=== PATIENT | female | born 1990 | race Caucasian/White ===

== ENCOUNTER 2016-10-01 05:27 | Inpatient (IN) | payer BC ==
--- NOTE | 2016-09-30 08:07 | PCM.LDHP ---
L&D History of Present Illness - General Date of Service: 09/30/16 Admit Problem/Dx: Admission Diagnosis/Problem Admission Diagnosis/Problem Source of Information: Patient History Limitations: Reports: No Limitations - History of Present Illness Introduction:: 0.7-year-old CYRUS 10/03/2016 estimated gestational age at time of C- section will be 39 weeks and 5 days GBS negative patient scheduled for repeat section 10/01/16 blood type O-positive antibody screen negative hemoglobin hematocrit 13.3/38.9 on 03/31/16 platelets 190,000 Pap smear negative rubella immune VDRL/RPR nonreactive urine culture contaminants hepatitis B surface antigen negative HIV negative Chlamydia probe negative gonorrhea probe negative on 08/20/2016 1 hour OB glucose screen 103 and hemoglobin hematocrit 10.5 and 33.0 platelets 230,000 Improves with: Reports: None Worsens with: Reports: None Associated Symptoms: Reports: N - Related Data Allergies/Adverse Reactions: Allergies Allergy/AdvReac Type Severity Reaction Status Date / Time No Known Allergies Allergy Verified 12/03/14 13:27 Home Medications: Home Meds Acetaminophen [Tylenol] 650 mg PO Q6H PRN #50 tablet 12/05/14 [Rx] Alum Hydrox/Mag Hydrox/Simeth [Mag-Al Plus] 30 ml PO Q8H PRN #1 cup 12/05/14 [Rx ] Benzocaine/Menthol [Dermoplast Pain Relief [place]] 1 spray TOP ASDIRECTED PRN #1 canister 12/05/14 [Rx] Bisacodyl [Dulcolax] 10 mg RECTAL BID PRN #20 supp 12/05/14 [Rx] Docusate Sodium [Colace] 100 mg PO BID PRN #50 cap 12/05/14 [Rx] Ibuprofen [Motrin] 200 - 800 mg PO Q6H PRN #50 tablet 12/05/14 [Rx] Lanolin [Lansinoh HPA] 1 applic TOP ASDIRECTED PRN #1 tube 12/05/14 [Rx] Past Medical History Other OB/BYN History: hx c-sections x 2 (2009 and 2012) and D&C - Past Surgical History Other HEENT Surgeries/Procedures: wisdom teeth Social & Family History - Tobacco Use Smoking Status *Q: Never Smoker - Recreational Drug Use Recreational Drug Use: No H&P Review of Systems - Review of Systems: Review Of Systems: See Below General: Reports: No Symptoms HEENT: Reports: No Symptoms Pulmonary: Reports: No Symptoms Cardiovascular: Reports: No Symptoms Gastrointestinal: Reports: No Symptoms Genitourinary: Reports: No Symptoms Musculoskeletal: Reports: No Symptoms Skin: Reports: No Symptoms Psychiatric: Reports: No Symptoms Neurological: Reports: No Symptoms Hematologic/Lymphatic: Reports: No Symptoms Immunologic: Reports: No Symptoms L&D Exam - Exam Exam: See Below - Vital Signs Weight: 156 lb 14.738 oz - OB Specific Fundal Height In cm: 37 Movement: Active Heart Tones: Present Heart Tones per Min: 145 Heart Rate (FHR) Variability: Moderate (6-25 bmp) Presentation: Vertex Estimated Weight: 7.5 - Exam General: Alert, Oriented HEENT: Conjunctiva Clear, Mucosa Moist & [place], Nares Patent, Normal Nasal Septum , Posterior Pharynx Clear, TMs Clear, PERRLA Neck: Supple, Trachea Midline Lungs: Clear to Auscultation, Normal Respiratory Effort Cardiovascular: Regular Rate, Regular Rhythm GI/Abdominal Exam: Normal Bowel Sounds, Soft, Non-Tender, No Organomegaly, No Distention, No Abnormal Bruit, No Mass, Pelvis Stable Genitourinary: Normal external exam, Normal bimanual exam, Normal speculum exam Back Exam: Normal Inspection, Full Range of Motion Extremities: Normal Inspection, Normal Range of Motion, Non-Tender, No Pedal Edema, Normal Capillary Refill Skin: Warm, Dry, Intact Neurological: Cranial Nerves Intact, Reflexes Equal Bilateral Psychiatric: Alert, Normal Affect, Normal Mood - Problem List (1) 39 weeks gestation of SNOMED Code(s): 69708829 ICD Code: Z3A.39 - 39 WEEKS GESTATION OF Status: Acute (2) Previous delivery affecting , antepartum SNOMED Code(s): 162143689, 259997367 ICD Code: O34.219 - MATERNAL CARE FOR UNSP TYPE SCAR FROM PREVIOUS DEL Status: Acute (3) Anemia affecting in third trimester SNOMED Code(s): 68513930, 00293044 ICD Code: O99.013 - ANEMIA COMPLICATING , THIRD TRIMESTER Status: Acute Problem List Initiated/Reviewed/Updated: No Assessment/Plan Comment:: plan repeat section Tuesday10/02/2015
[~2016-10-01 05:27] MED LIST: Citric Acid/Sodium Citrate Solution 30 ML Cup PO ONE; Metoclopramide 10 MG/2 ML SDV IVPUSH ONE; Sodium Chloride 0.9% 10 ML Syringe FLUSH PRN; ceFAZolin 2 GM in Premix Bag 1 BAG IV ONE
[2016-10-01] MEDS: Lactated Ringers 1,000 ML IV SCH ×2 (06:15→07:34)
[2016-10-01] MEDS ORDERED: Bupivacaine 0.5% 30 ML SDV ONE (06:44)
[2016-10-01] MEDS ORDERED: Oxytocin 10 Units/1 ML SDV ONE (07:05)
[2016-10-01] MEDS ORDERED: Morphine PF 10 MG/10 ML SDV ONE (07:05)
--- NOTE | 2016-10-01 07:14 | PCM.PREANE ---
Preanesthetic Assessment - Procedure Proposed Procedure: scheduled section - Anesthesia/Transfusion/Family Hx Anesthesia History: Prior Anesthesia Without Reaction Family History of Anesthesia Reaction: No Transfusion History: No Prior Transfusion(s) Intubation History: Unknown - Review of Systems General: No Symptoms Pulmonary: No Symptoms Cardiovascular: No Symptoms Gastrointestinal: No Symptoms Neurological: No Symptoms Other: Reports: None - Physical Assessment NPO Status Date: 09/30/16 NPO Status Time: 19:00 O2 Sat by Pulse Oximetry: 99 Respiratory Rate: 16 Vital Signs: Last Vital Signs Temp 37.1 C 10/01/16 05:45 Pulse 91 10/01/16 05:45 Resp 16 10/01/16 05:45 BP 108/75 10/01/16 05:45 Pulse Ox 99 10/01/16 05:45 Height: 1.57 m Weight: 76.912 kg ASA Class: 2 Mental Status: Alert & Oriented x3 Airway Class: Mallampati = 2 Dentition: Reports: Normal Dentition Thyro-Mental Finger Breadths: 3 Mouth Opening Finger Breadths: 5 ROM/Head Extension: Full Lungs: Clear to Auscultation, Normal Respiratory Effort Cardiovascular: Regular Rate, Regular Rhythm - Lab Values: Laboratory Last Values WBC 11.60 K/mm3 (3.98-10.04) H 10/01/16 06:25 RBC 3.75 M/mm3 (3.98-5.22) L 10/01/16 06:25 Hgb 10.4 gm/L (11.2-15.7) L 10/01/16 06:25 Hct 32.3 % (34.1-44.9) L 10/01/16 06:25 MCV 86.1 fl (79.4-94.8) 10/01/16 06:25 MCH 27.7 pg (25.6-32.2) 10/01/16 06:25 MCHC 32.2 g/dl (32.2-35.5) 10/01/16 06:25 RDW Std Deviation 48.2 fL (36.4-46.3) H 10/01/16 06:25 Plt Count 239 K/mm3 (182-369) 10/01/16 06:25 MPV 10.6 fl (9.4-12.3) 10/01/16 06:25 Neut % (Auto) 60.5 % (34.0-71.1) 10/01/16 06:25 Lymph % (Auto) 26.9 % (19.3-51.7) 10/01/16 06:25 [place] % (Auto) 10.9 % (4.7-12.5) 10/01/16 06:25 Eos % (Auto) 0.9 (0.7-5.8) 10/01/16 06:25 Baso % (Auto) 0.3 % (0.1-1.2) 10/01/16 06:25 Neut # (Auto) 7.01 K/mm3 (1.56-6.13) H 10/01/16 06:25 Lymph # (Auto) 3.12 K/mm3 (1.18-3.74) 10/01/16 06:25 [place] # (Auto) 1.27 K/mm3 (0.24-0.36) H 10/01/16 06:25 Eos # (Auto) 0.10 K/mm3 (0.04-0.36) 10/01/16 06:25 Baso # (Auto) 0.04 K/mm3 (0.01-0.08) 10/01/16 06:25 - Allergies Allergies/Adverse Reactions: Allergies Allergy/AdvReac Type Severity Reaction Status Date / Time No Known Allergies Allergy Verified 12/03/14 13:27 - Blood Blood Available: Yes Product(s) Available: PRBC - Anesthesia Plan Pre-Op Medication Ordered: Antacids - Acknowledgements Anesthesia Type Planned: Spinal Pt an Appropriate Candidate for the Planned Anesthesia: Yes Alternatives and Risks of Anesthesia Discussed w Pt/Guardian: Yes Pt/Guardian Understands and Agrees with Anesthesia Plan: Yes 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: , Other (See Below) Other OB/BYN History: hx c-sections x 2 (2009 and 2012) and D&C - Past Surgical History HEENT Surgical History: Reports: Oral Surgery Other HEENT Surgeries/Procedures: wisdom teeth - SUBSTANCE USE Smoking Status *Q: Never Smoker Tobacco Use Within Last Twelve Months: No Second Hand Smoke Exposure: No Recreational Drug Use History: No - HOME MEDS Home Medications: Home Meds Docusate Sodium [Colace] 100 mg PO DAILY 10/01/16 [History] Ferrous Sulfate [Iron] 1 tab PO DAILY 10/01/16 [History] Vit #108/Iron/FA [ One Tablet] 1 tab PO DAILY 10/01/16 [History ] - CURRENT (IN HOUSE) MEDS Current Meds: Current Medications Lactated Ringer's (Ringers, Lactated) 1,000 mls @ 125 mls/hr IV ASDIRECTED [facility] Last Admin: 10/01/16 06:15 Dose: 125 mls/hr Oxytocin 20 unit/ Lactated (Ringer's) 1,002 mls @ 500 mls/hr IV ASDIRECTED [facility] Sodium Chloride (Saline Flush) 10 ml FLUSH ASDIRECTED PRN PRN Reason: Keep Vein Open Discontinued Medications Bupivacaine HCl (Marcaine 0.5%) Confirm Administered Dose 30 ml .ROUTE .STK-MED ONE Stop: 10/01/16 06:45 Citric Acid/Sodium Citrate (Bicitra Solution) 30 ml PO ONETIME ONE Stop: 10/01/16 05:15 Last Admin: 10/01/16 06:51 Dose: 30 ml Cefazolin Sodium/Dextrose 2 gm (/ Premix) 50 mls @ 100 mls/hr IV ONETIME ONE Stop: 10/01/16 05:43 Metoclopramide HCl (Reglan) 10 mg IVPUSH ONETIME ONE Stop: 10/01/16 05:15 Last Admin: 10/01/16 06:51 Dose: 10 mg Morphine Sulfate (Duramorph Pf) Confirm Administered Dose 10 mg .ROUTE .STK-MED ONE Stop: 10/01/16 07:06 Oxytocin (Pitocin) Confirm Administered Dose 20 unit .ROUTE .STK-MED ONE Stop: 10/01/16 07:06
[2016-10-01] MEDS ORDERED: ceFAZolin 1 GM Vial ONE (08:03)
[2016-10-01] MEDS ORDERED: Ondansetron 4 MG/2 ML SDV ONE (08:06)
[2016-10-01] MEDS ORDERED: Lactated Ringers 1,000 ML ONE ×2 (08:21)
[2016-10-01] MEDS ORDERED: Ketorolac 30 MG/ML SDV ONE (08:21)
--- NOTE | 2016-10-01 09:02 | PCM.POSTAN ---
POST ANESTHESIA ASSESSMENT - MENTAL STATUS Mental Status: Alert - VITAL SIGNS Pulse Rate: 78 SaO2: 98 Resp Rate: 8 Blood Pressure: 105/62 Temperature: 98.4 C - RESPIRATORY Respiratory Status: respiratory rate WNL, Airway Patent, O2 Saturation Stable - CARDIOVASCULAR CV Status: Pulse Rate WNL, Blood Pressure Stable - GASTROINTESTINAL GI Status: No Symptoms - POST OP HYDRATION Hydration Status: Adequate & Stable
[2016-10-01] MEDS ORDERED: Ondansetron 4 MG/2 ML SDV IVPUSH PRN (09:03)
[2016-10-01] MEDS ORDERED: diphenhydrAMINE 50 MG/ML SDV IVPUSH PRN ×2 (09:03→10:42)
--- NOTE | 2016-10-01 09:06 | PCM.OPNOTE ---
- General Post-Op/Procedure Note Date of Surgery/Procedure: 10/01/16 Operative Procedure(s): Low segment transverse C-sectionrepeat (third) Pre Op Diagnosis: Previous section 2, 39 weeks estimated gestational age, anemia in Post-Op Diagnosis: Same Anesthesia Technique: Spinal Primary Surgeon: Gilbert Tiwari Secondary Surgeon: Emir iVllanueva Anesthesia Provider: Sofiya Charles Color Tester: Izabela Fernandes (MS3) Fluid Replacement, Intraop: 1,200 Output, Urine Amount: 100 EBL in mLs: 700 Drain/Tube Comments:: Alexander to gravity drainage close system Complications: None Condition: Good Free Text/Narrative:: Patient was transported to the operating room #1 and placed under spinal anesthesia in the supine position with wedge under the right hip and right flank Alexander catheter to gravity drainage, vaginal and abdominal prep. SCDs in place and functioning prior surgery, Ancef 2 g given intravenously prior surgery. Timeout performed confirming patient's name date of and procedure as repeat section. Having draped the patient in a sterile fashion the adequate level of anesthesia was confirmed was brought to the operating room 20 mL of 0.5% Marcaine without epinephrine injection into the area of the planned incision which had been marked with a skin pen. Pfannenstiel incision was made and care was sharp section to into the anterior fascia peritoneal cavity was entered without difficulty bladder flap created pushed caudad low segment transverse section was performed delivering a female liveborn 0801 hrs. on Tuesday10/01/16 Apgars 9/9 weight [address] Guzman medical office supervisor in attendance. Cord blood was collected from three- vessel cord placenta was removed manually and the endometrial cavity inspected placenta inspected intact eccentric cord insertion 3 vessel cord. Sponge needle pack asthma sharp count correct 1 the uterine incision closed in 2 layers first layer running locking suture of 0 Monocryl second layer horizontal imbricating modified [place] and 2 additional [id number] sutures for hemostasis with 0 Monocryl. Both tubes and ovaries were normal clot screen from the gutters and cul-de-sac uterus replaced into the abdominal cavity uterine incision reinspected no bleeding sponge needle pack asthma sharp count correct 2 the abdominal cavity was closed with #1 PDS for the anterior fascia irrigation carried out in the subcutaneous tissue and the skin was closed with subcuticular 3-0 Monocryl Dermabond Preneo applied clots cleaned from the vagina and patient transported postanesthesia care unit in satisfactory condition no blood transfusions were required not anticipated Nusser condition should change.
[2016-10-01] MEDS ORDERED: Sodium Chloride 0.9% 10 ML Syringe FLUSH PRN (10:42)
[2016-10-01] MEDS ORDERED: ePHEDrine 50 MG/ML SDV IVPUSH PRN (10:42)
[2016-10-01] MEDS ORDERED: Acetaminophen/oxyCODONE 325-5 MG Tab PO PRN (10:42)
[2016-10-01] MEDS ORDERED: Lanolin 100% Cream 7 GM Tube TOP PRN (10:42)
[2016-10-01] MEDS ORDERED: Ondansetron 4 MG/2 ML SDV IV PRN (10:42)
[2016-10-01] MEDS ORDERED: Docusate Sodium 100 MG Cap PO PRN (10:42)
[2016-10-01] MEDS ORDERED: Acetaminophen 325 MG Tab PO PRN (10:42)
[2016-10-01] MEDS ORDERED: Naloxone 0.4 MG/ML SDV IVPUSH PRN (10:42)
[2016-10-01] MEDS ORDERED: Dextrose 5%-Lactated Ringers 1,000 ML IV SCH (10:42)
[2016-10-01] MEDS: Ketorolac 30 MG/ML SDV IVPUSH SCH ×2 (15:59→22:23)
[2016-10-01] MEDS: Dextrose 5%-0.45% NaCl 1,000 ML IV SCH (16:52)
[2016-10-01] MEDS ORDERED: Sodium Chloride 0.9% 1,000 ML IV ONE (21:18)
[2016-10-02] MEDS: Dextrose 5%-0.45% NaCl 1,000 ML IV SCH (00:23)
[2016-10-02] MEDS ORDERED: Ketorolac 30 MG/ML SDV ONE (04:34)
[2016-10-02] MEDS: Ketorolac 30 MG/ML SDV IVPUSH SCH (04:45)
--- NOTE | 2016-10-02 06:06 | PCM.SN ---
- Free Text/Narrative Note: Postoperative day one. Patient is doing well. Has minimal discomfort. Also minimal lochia. She is nursing. Output has improved significantly overnight with IV fluid bolus. Patient is afebrile, vital signs stable. Lungs are clear with good breath sounds in all lung powers. Cardiovascular exam shows regular rate and rhythm. Abdomen is soft, tender with palpation around the incision. Incision is dry, intact and without evidence of hematoma or seroma or infection. Legs are nontender. Assessment/plan: Postoperative day one. Doing well. Will increase diet, activity and discontinue IV when tolerating fluids well. Monitor intake and output.
[2016-10-02 08:15] VITALS: BP 87/51
[2016-10-02] MEDS ORDERED: Ibuprofen 600 MG Tab PO PRN (08:30)
--- NOTE | 2016-10-02 09:57 | PCM.DCSUM1 ---
Discharge Summary - Hospital Course Free Text/Narrative:: Jeniffer is a 26-year-old multigravida white female who underwent a repeat section yesterday a.m. She delivered a viable, 7 lbs. 1 oz. female at 0801 hrs. on 10/01/2016. scores were 9 and 9. Postoperatively pain was controlled with Toradol and with Duramorph through the spinal block. She has been doing very well. She is nursing without problems, ambulating well. She has had good urine output. She has minimal lochia. Pain is under good control. Patient is desiring discharge home. Her vital signs stable. She is afebrile. Incision looks good. She has not been taking anything for analgesia. - Discharge Data Discharge Date: 10/02/16 Discharge Disposition: DC/Tfer to [facility] Condition: Good - Patient Summary/Data Operative Procedure(s) Performed: Low segment transverse C-sectionrepeat (third ) - Patient Instructions Diet: Regular Diet as Tolerated (Nursing diet was increased calcium and calories as recommended) Activity: As Tolerated (No intercourse or tampons until seen back. No lifting greater than 15 pounds or tub baths or driving a car times the next week) Driving: Do Not Drive Showering/Bathing: May Shower Wound/Incision Care: Keep Operative Site/Wound Site Clean and Dry Notify Provider of: Fever, Increased Pain, Swelling and Redness, Drainage, Nausea and/or Vomiting - Discharge Plan Home Medications: Home Meds Docusate Sodium [Colace] 100 mg PO DAILY 10/01/16 [History] Ferrous Sulfate [Iron] 1 tab PO DAILY 10/01/16 [History] Vit #108/Iron/FA [ One Tablet] 1 tab PO DAILY 10/01/16 [History ] Acetaminophen/oxyCODONE [Percocet 325-5 MG] 2 tab PO Q4H PRN #20 tablet [Rx] Ibuprofen [IJD: Ibuprofen] 600 mg PO Q4H PRN #30 tablet 10/02/16 [Rx] Patient Handouts: Delivery, Care After, Home Care Instructions for Mom Referrals: Gilbert Tiwari MD [Physician] - (Return to clinicDrPatty Tiwari4 weeks.) - Discharge Summary/Plan Comment DC Time >30 min.: No Discharge Summary/Plan Comment: Discharge instructions: 1. Discharge home 2. Regular, high fiber, nursing diet was increased calcium and calories as directed. 3. Diet, activity and follow-up discussed in detail with patient. 4. Medications per home medication was printed, discussed with and given to the patient. 5. Precautions given concern increased pain, bleeding, temperature, signs/ symptoms of DVT/PE. 6. Return to clinic-Dr. Tiwari Diagnosis: 39 week -history of previous section-delivered by repeat section Condition: Good - Patient Data Vitals - Most Recent: Last Vital Signs Temp 37.0 C 10/02/16 04:00 Pulse 79 10/02/16 04:00 Resp 16 10/02/16 08:00 BP 88/62 L 10/02/16 04:00 Pulse Ox 98 10/02/16 06:00 Weight - Most Recent: 76.912 kg I&O - Last 24 hours: Intake & Output 10/01/16 10/02/16 10/02/16 22:59 06:59 14:59 Intake Total 2000 2800 Output Total 300 1275 Balance 1700 1525 Lab Results - Last 24 hrs: Laboratory Results - last 24 hr 10/02/16 Range/Units 06:16 WBC 13.91 H (3.98-10.04) K/mm3 RBC 2.92 L (3.98-5.22) M/mm3 Hgb 8.0 L (11.2-15.7) gm/L Hct 25.7 L (34.1-44.9) % MCV 88.0 (79.4-94.8) fl MCH 27.4 (25.6-32.2) pg MCHC 31.1 L (32.2-35.5) g/dl RDW Std Deviation 49.3 H (36.4-46.3) fL Plt Count 185 (182-369) K/mm3 MPV 10.6 (9.4-12.3) fl Neut % (Auto) 59.5 (34.0-71.1) % Lymph % (Auto) 28.7 (19.3-51.7) % [place] % (Auto) 9.5 (4.7-12.5) % Eos % (Auto) 1.6 (0.7-5.8) Baso % (Auto) 0.3 (0.1-1.2) % Neut # (Auto) 8.29 H (1.56-6.13) K/mm3 Lymph # (Auto) 3.99 H (1.18-3.74) K/mm3 [place] # (Auto) 1.32 H (0.24-0.36) K/mm3 Eos # (Auto) 0.22 (0.04-0.36) K/mm3 Baso # (Auto) 0.04 (0.01-0.08) K/mm3 Med Orders - Current: Current Medications Acetaminophen (Tylenol) 650 mg PO Q4H PRN PRN Reason: mild pain or fever Diphenhydramine HCl (Benadryl) 25 mg IVPUSH Q6H PRN PRN Reason: Itching or Nausea Docusate Sodium (Colace) 100 mg PO Q12H PRN PRN Reason: Constipation Emollient Ointment (Lansinoh Hpa) 0 gm TOP ASDIRECTED PRN PRN Reason: Sore Nipples Ephedrine Sulfate (Ephedrine Sulfate) 5 mg IVPUSH SEECOMMENT PRN PRN Reason: Other Dextrose/Sodium Chloride (Dextrose 5%-1/2 Ns) 1,000 mls @ 125 mls/hr IV ASDIRECTED [facility] Last Admin: 10/02/16 00:23 Dose: 125 mls/hr Ibuprofen (Motrin) 600 mg PO Q6H PRN PRN Reason: mild pain or fever Naloxone HCl (Narcan) 0.1 mg IVPUSH SEECOMMENT PRN PRN Reason: Respiratory Depression Ondansetron HCl (Zofran) 4 mg IV Q8H PRN PRN Reason: Nausea/Vomiting Last Admin: 10/01/16 16:50 Dose: 4 mg Oxycodone/Acetaminophen (Percocet 325-5 Mg) 2 tab PO Q4H PRN PRN Reason: Pain (moderate 4-6) Sodium Chloride (Saline Flush) 10 ml FLUSH ASDIRECTED PRN PRN Reason: Keep Vein Open Discontinued Medications Bupivacaine HCl (Marcaine 0.5%) Confirm Administered Dose 30 ml .ROUTE .STK-MED ONE Stop: 10/01/16 06:45 Last Admin: 10/01/16 07:58 Dose: 20 ml Cefazolin Sodium (Ancef) Confirm Administered Dose 2 gm .ROUTE .STK-MED ONE Stop: 10/01/16 08:04 Citric Acid/Sodium Citrate (Bicitra Solution) 30 ml PO ONETIME ONE Stop: 10/01/16 05:15 Last Admin: 10/01/16 06:51 Dose: 30 ml Diphenhydramine HCl (Benadryl) 25 mg IVPUSH Q6H PRN PRN Reason: pruritis Lactated Ringer's (Ringers, Lactated) 1,000 mls @ 125 mls/hr IV ASDIRECTED [facility] Last Admin: 10/01/16 07:34 Dose: 125 mls/hr Cefazolin Sodium/Dextrose 2 gm (/ Premix) 50 mls @ 100 mls/hr IV ONETIME ONE Stop: 10/01/16 05:43 Oxytocin 20 unit/ Lactated (Ringer's) 1,002 mls @ 500 mls/hr IV ASDIRECTED [facility] Lactated Ringer's (Ringers, Lactated) Confirm Administered Dose 1,000 mls @ as directed .ROUTE .ST-MED ONE Stop: 10/01/16 08:22 Lactated Ringer's (Ringers, Lactated) Confirm Administered Dose 1,000 mls @ as directed .ROUTE .STK-MED ONE Stop: 10/01/16 08:22 Dextrose/Lactated Ringer's (Dextrose 5%-Lactated Ringers) 1,000 mls @ 125 mls/ hr IV ASDIRECTED [facility] Stop: 10/01/16 18:41 Last Admin: 10/01/16 12:59 Dose: 125 mls/hr Sodium Chloride (Normal Saline) 1,000 mls @ 999 mls/hr IV ONETIME ONE Stop: 10/01/16 22:18 Last Admin: 10/01/16 21:36 Dose: 999 mls/hr Ketorolac Tromethamine (Toradol) Confirm Administered Dose 30 mg .ROUTE .STK- MED ONE Stop: 10/01/16 08:22 Ketorolac Tromethamine (Toradol) 30 mg IVPUSH Q6H [facility] Stop: 10/02/16 02:31 Last Admin: 10/02/16 04:45 Dose: 30 mg Ketorolac Tromethamine (Toradol) Confirm Administered Dose 30 mg .ROUTE .STK- MED ONE Stop: 10/02/16 04:35 Last Admin: 10/02/16 04:45 Dose: Not Given Metoclopramide HCl (Reglan) 10 mg IVPUSH ONETIME ONE Stop: 10/01/16 05:15 Last Admin: 10/01/16 06:51 Dose: 10 mg Morphine Sulfate (Duramorph Pf) Confirm Administered Dose 10 mg .ROUTE .STK-MED ONE Stop: 10/01/16 07:06 Ondansetron HCl (Zofran) Confirm Administered Dose 4 mg .ROUTE .STK-MED ONE Stop: 10/01/16 08:07 Ondansetron HCl (Zofran) 4 mg IVPUSH ONETIME PRN PRN Reason: Nausea/Vomiting Oxytocin (Pitocin) Confirm Administered Dose 20 unit .ROUTE .STK-MED ONE Stop: 10/01/16 07:06 Sodium Chloride (Saline Flush) 10 ml FLUSH ASDIRECTED PRN PRN Reason: Keep Vein Open *Q Meaningful Use (DIS) - VTE *Q VTE Criteria *Q: - Stroke *Q Stroke Criteria *Q: - AMI *Q AMI Criteria *Q:
== END 2016-10-02 12:53 | disposition home or self-care (01) | DRG 540 ==
LOC: JD.OB 05:27
PROVIDERS: ADMIT Obstetrics & Gynecology; ATTEND Obstetrics & Gynecology
PROC: 10D00Z1 Extraction of Products of Conception, Low, Open Approach (ICD-10-PCS; principal; 2016-10-01)
DX: O34.211 Maternal care for low transverse scar from previous cesarean delivery (principal); O99.02 Anemia complicating childbirth; Z3A.39 39 weeks gestation of pregnancy; Z37.0 Single live birth
CPT/HCPCS: 01961; 36415; 85025; 86850; 86900; 86901; 94762; A9270-GY; J0690; J1885; J2270; J2405; J2590; J2765; J7040; J7042; J7120

== ENCOUNTER 2019-05-16 05:20 | Inpatient (IN) | payer BC, OTHER ==
--- NOTE | 2019-05-15 21:09 | PCM.LDHP ---
L&D History of Present Illness - General Date of Service: 05/15/19 Admit Problem/Dx: Admission Diagnosis/Problem Admission Diagnosis/Problem 05/15/19 20:54 Jeniffer is a 29-year-old 6 para 4014 white female who is scheduled to be admitted on 05/16/2023 elective repeat section. Procedure, risks, benefits, alternatives of care including attempted are discussed due to patient. She appears understand and wishes to proceed. Source of Information: Patient History Limitations: Reports: No Limitations - History of Present Illness Introduction:: Jeniffer is a 29-year-old 6 para 4014 white female who is scheduled to be admitted on 05/16/2023 elective repeat section. Procedure, risks, benefits, alternatives of care including attempted are discussed due to patient. She appears understand and wishes to proceed. She has had a relatively unremarkable . 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 Patient has had 4 deliveries with 3 of them being sections. One done after her first 2 C-sections. First done for failure to progress. Patient had menarche at age 10. Cycles every month. Last menstrual period -08/16/2018. The CYRUS of 05/23/2019 is determined by certain last menstrual period 08/16/2018 and supported by 3 ultrasounds done on 11/27/2018, 01/05/2019 and 02/07/2019. Previous pregnancies have included the followin. Female infant born 07/19/2010 at 40 weeks gestational age after 15 hours later. 8 lbs. 2 oz. infant born by section done for failure to progress. 2. Miscarriage 11/06/2011 3. Female born 09[birth year]18/2012 at 36 weeks gestational age. 6 lbs. 4 oz. infant born by repeat section. 4. born 12/04/2000 1539 weeks gestational age6 lbs. 11 oz.vaginal after section. Child's name is Ava Sheridan 5. Female born [birth year]2014 at 39 weeks gestational age after 10 hours of labor 6 lbs. 7 lbs. 4 oz. Repeat section course was unremarkable. Her group B strep screen is negative. She declined Tdap. Plans to breast-feed. Patient was seen for her first visit on 11/27/2018 at 14-5/7 weeks gestational age. Her weight gain was from a pregravid weight of 144-173 pounds for 29 pound increase. Her vital signs remained stable throughout the course and fundal height growth was appropriate. The patient is rubella immune. She had her hepatitis B vaccinations in June 2007. Meningococcal immunization was done 05/17/2007. HPV immunization started August 09, 2007. Laboratory testing in shows blood to be O+ with a negative MRI screen. Hemoglobin is 12.1 g/dL and platelets 173,001st visit on 2018. She is rubella immune. RPR is nonreactive. Urine culture negative. [employer] B surface antigen and HIV S both negative. Cleaning gonorrhea tests both negative. Patient declined second trimester testing. She is group B strep negative. Allergies: None Medications: 1. vitamins 1 daily 2. Ferrous sulfate 325 mg by mouth daily Past medical history: 1. Miscarriage 1 11/06/2011 2. Vaginal delivery 12/03/2014VBAC Past surgical history: 1. D&C 2011miscarria 2. [place] tooth extraction 2006 3. 3 Family history: Mother is alive and well. Father is unknown. Brother is alive and well as is his sister. Maternal grandmother is alive but is a borderline diabetic. Family history is not known for maternal grandfather, paternal grandmother and paternal grandfather. There is no known family history of cancer , bleeding or clotting abnormalities, anesthesia related issues or related problems. Social history: Patient is . is Richard Vee. She works at [employer]. She does not use any significant amounts of alcohol, drugs or tobacco. She lives in [place] with her family. Review of systems: In general patient has no complaints. Baby has been active. Skin: Negative Lungs: No infectious symptoms or shortness of breath Cardiovascular: No chest pain or exercise intolerance Breasts: Increase in size and tenderness related to .. GI: Negative : Increased fundal height secondary to .. Musculoskeletal: Negative Neurological: Negative In general the patient is well-developed, well-nourished, pleasant female of stated age in no acute distress. Last evaluation in clinic on 05/14/2019 blood pressure is 122/68. Weight was 173 with a pregravid weight of 144.2. Height is 5 feet 2 inches. Prepregnancy BMI is 26.3. FHR was 147 BPM. Skin is warm dry without lesions. HEENT, neck and back within normal limits. Lungs are clear with good breath sounds in all lung powers. Cardiovascular exam shows regular and rhythm without murmurs. Breasts exam is deferred having that done first no visible found to be normal. Abdomen is gravid with last fundal height at 37 cm. Baby in vertex presentation Genital per digital exam done 05/14/2019 shows cervix to be 2 cm, 80% effaced, soft, -3, mid position. Extremities and neurological exam are grossly within normal limits. 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 2014 Hematologic History: Reports: Anemia, Iron Deficiency, Other (See Below) Other Hematologic History: Anemia in nayely high. Currently taking iron daily - Past Surgical History HEENT Surgical History: Reports: Oral Surgery Other HEENT Surgeries/Procedures: wisdom teeth 2006 Social & Family History - Family History Family Medical History: Noncontributory - Tobacco Use Smoking Status *Q: Never Smoker - Recreational Drug Use Recreational Drug Use: No H&P Review of Systems - Review of Systems: Review Of Systems: See Below L&D Exam - Exam Exam: See Below - Patient Data Lab Results Last 24 hrs: Laboratory Results - last 24 hr 05/14/19 Range/Units 16:37 RPR Non-reactive (NONREACTIVE) Result Diagrams: 05/14/19 16:37 Problem List Initiated/Reviewed/Updated: Yes Assessment/Plan Comment:: 1. Jeniffer is a patient with a 39 0/7 week intrauterine with an CYRUS of 05/23/2019 admitted for elective repeat section. The procedure, risks , benefits, alternatives of care and follow-up discussed in detail patient. She appears to understand and wishes to proceed. 2. B strep screen negative 3. History of 3 previous C-sections and desire for repeat section. 4. Patient plans to breast-feed 5. Patient is rubella immune 6. Patient declined her T-dap Plan: 1. Repeat lower uterine segment transverse under spinal block. Discussed in detail with patient. Consent is signed. 2. Support breast-feeding decision 3. CBC, urinalysis, type and screen 4. Antibiotic prophylaxis with Ancef 2 g IV preop 5. SCDs for DVT prophylaxis.
[~2019-05-16 05:20] MED LIST changes: -Citric Acid/Sodium Citrate Solution 30 ML Cup PO ONE; -Metoclopramide 10 MG/2 ML SDV IVPUSH ONE; +Oxytocin/Lactated Ringers 20 UNIT/1,000 ML BAG IV SCH; -ceFAZolin 2 GM in Premix Bag 1 BAG IV ONE
[2019-05-16] MEDS ORDERED: Citric Acid/Sodium Citrate Solution 30 ML Cup PO ONE (06:00)
[2019-05-16] MEDS: Lactated Ringers 1,000 ML IV SCH ×2 (06:00→06:27)
[2019-05-16] MEDS ORDERED: Metoclopramide 10 MG/2 ML SDV IVPUSH ONE (06:00)
--- NOTE | 2019-05-16 06:49 | PCM.PREANE ---
Preanesthetic Assessment - Anesthesia/Transfusion/Family Hx Anesthesia History: Prior Anesthesia Without Reaction Transfusion History: No Prior Transfusion(s) Intubation History: Unknown - Review of Systems General: No Symptoms Pulmonary: No Symptoms Cardiovascular: No Symptoms Gastrointestinal: No Symptoms Neurological: No Symptoms Other: Reports: None - Physical Assessment NPO Status Date: 05/16/19 NPO Status Time: 04:00 (CLQ) Height: 1.57 m Weight: 77.746 kg ASA Class: 2 Mental Status: Alert & Oriented x3 Airway Class: Mallampati = 1 Dentition: Reports: Normal Dentition Thyro-Mental Finger Breadths: 3 Mouth Opening Finger Breadths: 4 ROM/Head Extension: Full Lungs: Clear to Auscultation, Normal Respiratory Effort Cardiovascular: Regular Rate, Regular Rhythm - Lab Values: Laboratory Last Values WBC 12.04 K/mm3 (3.98-10.04) H 05/14/19 16:37 RBC 3.69 M/mm3 (3.98-5.22) L 05/14/19 16:37 Hgb 10.2 gm/dl (11.2-15.7) L D 05/14/19 16:37 Hct 32.7 % (34.1-44.9) L 05/14/19 16:37 MCV 88.6 fl (79.4-94.8) 05/14/19 16:37 MCH 27.6 pg (25.6-32.2) 05/14/19 16:37 MCHC 31.2 g/dl (32.2-35.5) L 05/14/19 16:37 RDW Std Deviation 42.7 fL (36.4-46.3) 05/14/19 16:37 Plt Count 307 K/mm3 (182-369) D 05/14/19 16:37 MPV 10.6 fl (9.4-12.3) 05/14/19 16:37 Neut % (Auto) 63.3 % (34.0-71.1) 05/14/19 16:37 Lymph % (Auto) 24.7 % (19.3-51.7) 05/14/19 16:37 [place] % (Auto) 10.5 % (4.7-12.5) 05/14/19 16:37 Eos % (Auto) 0.7 (0.7-5.8) 05/14/19 16:37 Baso % (Auto) 0.2 % (0.1-1.2) 05/14/19 16:37 Neut # (Auto) 7.61 K/mm3 (1.56-6.13) H 05/14/19 16:37 Lymph # (Auto) 2.97 K/mm3 (1.18-3.74) 05/14/19 16:37 [place] # (Auto) 1.27 K/mm3 (0.24-0.36) H 05/14/19 16:37 Eos # (Auto) 0.09 K/mm3 (0.04-0.36) 05/14/19 16:37 Baso # (Auto) 0.03 K/mm3 (0.01-0.08) 05/14/19 16:37 RPR Non-reactive (NONREACTIVE) 05/14/19 16:37 Blood Type O POSITIVE 05/14/19 16:45 Gel Antibody Screen Negative 05/14/19 16:45 - Allergies Allergies/Adverse Reactions: Allergies Allergy/AdvReac Type Severity Reaction Status Date / Time No Known Allergies Allergy Verified 12/03/14 13:27 - Acknowledgements Anesthesia Type Planned: Spinal Pt an Appropriate Candidate for the Planned Anesthesia: Yes Alternatives and Risks of Anesthesia Discussed w Pt/Guardian: Yes Pt/Guardian Understands and Agrees with Anesthesia Plan: Yes 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 Questionnaire HEENT History: Reports: None 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 2014 Hematologic History: Reports: Anemia, Iron Deficiency, Other (See Below) Other Hematologic History: Anemia in nayely high. Currently taking iron daily - Past Surgical History HEENT Surgical History: Reports: Oral Surgery Other HEENT Surgeries/Procedures: wisdom teeth 2006 - SUBSTANCE USE Smoking Status *Q: Never Smoker Recreational Drug Use History: No - HOME MEDS Home Medications: Home Meds Docusate Sodium [Colace] 100 mg PO DAILY 10/01/16 [History] Ferrous Sulfate [Iron] 1 tab PO DAILY 10/01/16 [History] Mv-Mn/Iron/FA/Herbal/Digestive [ One Tablet] 1 tab PO DAILY 10/01/16 [ History] Acetaminophen/oxyCODONE [Percocet 325-5 MG] 2 tab PO Q4H PRN #20 tablet [Rx] Ibuprofen [IJD: Ibuprofen] 600 mg PO Q4H PRN #30 tablet 10/02/16 [Rx] - CURRENT (IN HOUSE) MEDS Current Meds: Current Medications Cefazolin Sodium/Dextrose 2 gm (/ Premix) 50 mls @ 100 mls/hr IV ONETIME ONE Stop: 05/16/19 07:29 Lactated Ringer's (Ringers, Lactated) 1,000 mls @ 125 mls/hr IV ASDIRECTED JULIEN Last Admin: 05/16/19 06:27 Dose: 999 mls/hr Oxytocin/Lactated Ringer's (Pitocin In Lr 20 Units/1,000 Ml) 20 unit in 1,000 mls @ 500 mls/hr IV TITRATE JULIEN; Protocol Sodium Chloride (Saline Flush) 10 ml FLUSH ASDIRECTED PRN PRN Reason: Keep Vein Open Discontinued Medications Citric Acid/Sodium Citrate (Bicitra Solution) 30 ml PO ONETIME ONE Stop: 05/16/19 06:01 Metoclopramide HCl (Reglan) 10 mg IVPUSH ONETIME ONE Stop: 05/16/19 06:01
[2019-05-16] MEDS ORDERED: ceFAZolin 2 GM in Premix Bag 1 BAG IV ONE (07:00)
[2019-05-16] MEDS ORDERED: Bupivacaine 0.5% 30 ML SDV ONE (07:06)
[2019-05-16] MEDS ORDERED: Oxytocin 10 Units/1 ML SDV ONE ×2 (07:08→08:11)
[2019-05-16] MEDS ORDERED: fentaNYL 100 MCG/2 ML SDV ONE (07:09)
[2019-05-16] MEDS ORDERED: Morphine PF 10 MG/10 ML SDV ONE (07:09)
[2019-05-16] MEDS ORDERED: ceFAZolin 1 GM Vial ONE (07:09)
[2019-05-16] MEDS ORDERED: Ketorolac 30 MG/ML SDV ONE (08:22)
[2019-05-16] MEDS ORDERED: Lactated Ringers 1,000 ML ONE ×2 (08:23→08:31)
[2019-05-16] MEDS ORDERED: Ondansetron 4 MG/2 ML SDV IVPUSH PRN (08:28)
[2019-05-16] MEDS ORDERED: fentaNYL 100 MCG/2 ML SDV IVPUSH PRN (08:28)
[2019-05-16] MEDS ORDERED: diphenhydrAMINE 50 MG/ML SDV IVPUSH PRN ×2 (08:28→11:40)
--- NOTE | 2019-05-16 08:54 | PCM.POSTAN ---
POST ANESTHESIA ASSESSMENT - MENTAL STATUS Mental Status: Alert, Oriented - VITAL SIGNS Vital Signs: Last Vital Signs Temp 97.8 F 05/16/19 08:44 Pulse 81 05/16/19 08:44 Resp 14 05/16/19 08:44 BP 103/69 05/16/19 08:44 Pulse Ox 98 05/16/19 08:44 - RESPIRATORY Respiratory Status: Respiratory Rate WNL, Airway Patent, O2 Saturation Stable - CARDIOVASCULAR CV Status: Pulse Rate WNL, Blood Pressure Stable - GASTROINTESTINAL GI Status: No Symptoms - PAIN Pain Score: 0 (post SAB) - POST OP HYDRATION Hydration Status: Adequate & Stable
--- NOTE | 2019-05-16 08:56 | PCM.OPNOTE ---
- General Post-Op/Procedure Note Date of Surgery/Procedure: 05/16/19 Operative Procedure(s): Repeat lower uterine segment transverse section through Pfannenstiel skin incision Findings: Uterus tubes and ovaries were consistent with term . Baby in vertex presentation. Amniotic fluid clear. Minimal scarring noted in the anterior abdominal wall or the uterine wall. Baby was delivered at 0803 hrs., had Apgars of 8 and 9. Weight was 3150 g (6 lbs. 15 oz.). Pre Op Diagnosis: 1. 39-0/7 week intrauterine . 2. History of previous section desire for repeat section Post-Op Diagnosis: Same with delivery of viable, 3150 g male infant with Apgars of 8 and 9, delivered at 0803 hrs. on 05/16/2019 Anesthesia Technique: Spinal Other Anesthesia Type: Marcaine 0.5%20 mL local Primary Surgeon: Emir Villanueva Secondary Surgeon: Gilbert Tiwari Anesthesia Provider: Rambo Kebede Credit Report Checker: Shaniqua Encinas Reason Credit Report Checker Was Necessary: Retraction, assistance, patient safety, quality of care Fluid Replacement, Intraop: 2,000 Output, Urine Amount: 150 EBL in mLs: 400 Drain/Tube Comments:: Indwelling bladder catheter Complications: None Condition: Good Free Text/Narrative:: Surgery duration: 41 minutes Procedure: The patient is appropriately consented. Patient was transferred to the room and placed in a sitting position. Spinal anesthesia with Duramorph was administered. After confirmation of adequate anesthesia patient was placed in a supine position with a wedge under her right side to facilitate left lateral positioning. The patient was prepped and draped in usual fashion after Alexander catheter was already placed . The anesthetic was checked and found to be adequate. 20 mL of Marcaine 0.5% was injected locally in the Pfannenstiel incision site. The Pfannenstiel skin incision was then made and carried down through skin, subcutaneous and fascial layers. The fascia was then undermined superiorly and inferiorly to allow for adequate operating room. The recti muscles midline and preperitoneal fat was bluntly dissected. Peritoneal cavity was entered longitudinally. The vesicouterine peritoneum was then incised transversely and bladder flap was developed. Myometrium was incised transversely to the level of the amniotic sac. This incision was extended bilaterally in a blunt fashion. The amniotic sac was then ruptured resulting in clear amniotic fluid. A hand is placed in the low uterine segment and the baby's head was brought forth through the incision. The baby was completely delivered using fundal pressure in a routine fashion. The nose and mouth were bulb suctioned. Baby's cord was clamped x2 cut and baby was handed off to attending asw/asuw tactical air controller Dr Rodgers. Placenta was expressed after cord blood was obtained. Uterus was then exteriorized to allow for easier closure. The cervix was assessed and found to be dilated adequately to allow egress of blood. The uterus was closed in 2 layers. The first layer a running locked suture of 0 Monocryl, the second layer a running locked vertical mattress suture of 0 Monocryl. [id number] suture was placed at mid incision to control 1 bleeder. Hemostasis confirmed at this time. Sponge instrument needle counts are correct. The uterus was returned to the abdominal cavity and lateral gutters were cleared of blood. Once again sponge needle counts are correct. The anterior abdominal wall was closed with a #1 PDS suture from angle to angle. The subcutaneous area was found to be free of any bleeders. interrupted sutures of 3-0 Monocryl were used to reapproximate the subcutaneous layer.Skin was closed with a running subcuticular stitch of 3-0 Monocryl in a vertical mattress suture fashion using a Chago needle. Prineo mesh/glue was then applied to further approximate the incision. It should be noted that patient received 2 g of Ancef preoperatively for infection prophylaxis and had Pitocin infused after delivery of the placenta to facilitate uterine contraction. She also had sequential compression stockings in place for DVT prophylaxis. Patient was discharged from the operating room in satisfactory condition.
[2019-05-16] MEDS ORDERED: Naloxone 0.4 MG/ML SDV IVPUSH PRN (11:40)
[2019-05-16] MEDS ORDERED: ePHEDrine 50 MG/ML SDV IVPUSH PRN (11:40)
[2019-05-16] MEDS ORDERED: Ondansetron 4 MG/2 ML SDV IV PRN (11:40)
[2019-05-16] MEDS ORDERED: Dextrose 5%-Lactated Ringers 1,000 ML IV SCH (11:40)
[2019-05-16] MEDS: Simethicone 80 MG Tab.Chew PO SCH ×4 (12:01→21:38)
[2019-05-16] MEDS: Prenatal Multivitamin with Calcium/Folic Acid/Iron Tab PO SCH (12:01)
[2019-05-16] MEDS ORDERED: Sodium Chloride 0.9% 1,000 ML IV SCH (13:45)
[2019-05-16] MEDS: Ibuprofen 800 MG Tab PO SCH ×2 (15:21→23:54)
[2019-05-16] MEDS: Acetaminophen/oxyCODONE 325-5 MG Tab PO PRN (21:39)
[2019-05-17] MEDS: Acetaminophen/oxyCODONE 325-5 MG Tab PO PRN ×4 (05:35→21:44)
--- NOTE | 2019-05-17 07:03 | PCM.SN ---
- Free Text/Narrative Note: note: Patient is doing well in the period. Minimal lochia, voiding well, ambulated without problems. Nursing without concerns. Patient is afebrile, vital signs are stable Lungs are clear with good breath sounds in all lung powers. Cardiovascular exam shows regular. Abdomen is flat, soft, uterus is below the umbilicus and is firm and nontender. Incision dry, intact. Legs are nontender. Assessment: postoperative day one/ recovery going well. Plan: Routine care. Patient be discharged home within the next 24-48 hours.
--- NOTE | 2019-05-17 07:28 | PCM48HPAN ---
Post Anesthesia Note - EVALUATION WITHIN 48HRS OF ANESTHETIC Vital Signs in Normal Range: Yes Patient Participated in Evaluation: Yes Respiratory Function Stable: Yes Airway Patent: Yes Cardiovascular Function Stable: Yes Hydration Status Stable: Yes Pain Control Satisfactory: Yes Nausea and Vomiting Control Satisfactory: Yes Mental Status Recovered: Yes Vital Signs: Last Vital Signs Temp 36.2 C 05/16/19 15:21 Pulse 74 05/17/19 01:42 Resp 16 05/17/19 02:00 BP 93/45 L 05/17/19 01:42 Pulse Ox 95 05/17/19 01:42 - COMMENTS/OBSERVATIONS Free Text/Narrative:: no anesthesia complications noted
[2019-05-17] MEDS: Prenatal Multivitamin with Calcium/Folic Acid/Iron Tab PO SCH (10:18)
[2019-05-17] MEDS: Simethicone 80 MG Tab.Chew PO SCH ×4 (10:18→21:43)
[2019-05-17] MEDS: Ibuprofen 800 MG Tab PO SCH ×2 (10:19→15:27)
[2019-05-17] MEDS: Ferrous Sulfate 324 MG Tab.EC PO SCH (16:02)
[2019-05-17] MEDS: Docusate Sodium 100 MG Cap PO PRN (16:02)
[2019-05-18] MEDS: Ibuprofen 800 MG Tab PO SCH ×2 (01:58→10:29)
[2019-05-18] MEDS: Acetaminophen/oxyCODONE 325-5 MG Tab PO PRN ×2 (06:55→11:15)
[2019-05-18] MEDS: Docusate Sodium 100 MG Cap PO PRN (10:28)
[2019-05-18] MEDS: Simethicone 80 MG Tab.Chew PO SCH (10:28)
[2019-05-18] MEDS: Prenatal Multivitamin with Calcium/Folic Acid/Iron Tab PO SCH (10:29)
[2019-05-18] MEDS: Ferrous Sulfate 324 MG Tab.EC PO SCH (10:30)
--- NOTE | 2019-05-18 10:41 | PCM.DCSUM1 ---
Discharge Summary - Hospital Course Free Text/Narrative:: Jeniffer is a 29-year-old 6 now para 5015 white female with an CYRUS of who is admitted on 05/16/2019 at 39-0/7 weeks gestational age for elective repeat section. Please see history and physical for details. Patient underwent a repeat section and livered a viable, pradhan, infant with Apgars of 8 and 9, weight of 3150 g (6 lbs. 15 oz.) at 0803 hrs. on 05/18/2019. Patient had routine postoperative course. Hemoglobin was low to begin with at 10.2 but dropped to 7.6 with hemodilution and blood loss from time surgery. She was however clinically doing well and was not a candidate for transfusion. She is breast-feeding without problems, has minimal lochia, was voiding well and desires discharge home today. Discharge instructions are given. Diagnosis: Stroke: No - Discharge Data Discharge Date: 05/18/19 Discharge Disposition: Home, Self-Care 01 Condition: Good - Referral to Home Health Primary Care Physician: Emir Villnaueva MD - Patient Summary/Data Operative Procedure(s) Performed: Repeat lower uterine segment transverse section through Pfannenstiel skin incision - Patient Instructions Diet: Regular Diet as Tolerated (Nursing diet was increased calories and calcium as recommended) Activity: As Tolerated (No intercourse, tampons until seen back. No lifting greater than 15 pounds or driving a car 1 week.) Driving: Do Not Drive Showering/Bathing: May Shower Wound/Incision Care: Keep Operative Site/Wound Site Clean and Dry Notify Provider of: Fever, Increased Pain, Swelling and Redness, Nausea and/or Vomiting - Discharge Plan Prescriptions/Med Rec: Ibuprofen 600 mg PO Q4HR PRN #30 tablet PRN Reason: Pain Home Medications: Home Meds Ferrous Sulfate [Iron] 325 mg PO DAILY 05/16/19 [History] Pnv No.95/Ferrous Fum/Folic AC [Prenavite Tablet] 1 each PO DAILY 05/16/19 [ History] Acetaminophen/oxyCODONE [Percocet 325-5 MG] 2 tab PO Q4H PRN tablet 05/18/19 [ Rx] Docusate Sodium [Colace] 100 mg PO Q12H PRN cap 05/18/19 [Rx] Ferrous Sulfate 324 mg PO BIDMEALS tab.ec 05/18/19 [Rx] Ibuprofen 600 mg PO Q4HR PRN #30 tablet 05/18/19 [Rx] Vit with Ca/FA/Iron [ Plus Iron] 1 each PO DAILY tablet [Rx] Patient Handouts: Home Care Instructions for Mom, Tips for a Good Latch, [id number], Delivery Referrals: Emir Villanueva MD [Primary Care Provider] - 05/30/19 - Discharge Summary/Plan Comment DC Time >30 min.: No Discharge Summary/Plan Comment: Discharge instructions: 1. Discharge home 2. Diet, activity and follow-up discussed with patient. Recommend nursing diet with increased calories and calcium. 3. Precautions given concern increased pain, bleeding, temperature, signs/ symptoms of DVT/PE. 4. Medications per home medication was printed, discussed with and given to the patient. 5. Return to clinic-Dr. Villanueva[facility] in 2 weeks. Diagnosis: Term -delivered Condition: Good - Patient Data Vitals - Most Recent: Last Vital Signs Temp 36.8 C 05/18/19 05:13 Pulse 75 05/18/19 05:13 Resp 12 05/18/19 05:13 BP 96/58 L 05/18/19 05:13 Pulse Ox 99 05/17/19 21:30 Weight - Most Recent: 77.746 kg I&O - Last 24 hours: Intake & Output 05/17/19 05/18/19 05/18/19 22:59 06:59 14:59 Intake Total 240 Balance 240 Med Orders - Current: Current Medications Diphenhydramine HCl (Benadryl) 25 mg IVPUSH Q6H PRN PRN Reason: Itching or Nausea Docusate Sodium (Colace) 100 mg PO Q12H PRN PRN Reason: Constipation Last Admin: 05/18/19 10:28 Dose: 100 mg Ephedrine Sulfate (Ephedrine Sulfate) 5 mg IVPUSH SEECOMMENT PRN PRN Reason: Other Ferrous Sulfate (Ferrous Sulfate) 324 mg PO BIDMEALS [facility] Last Admin: 05/18/19 10:30 Dose: 324 mg Sodium Chloride (Normal Saline) 1,000 mls @ 999 mls/hr IV ASDIRECTED [facility] Last Admin: 05/16/19 13:49 Dose: 999 mls/hr Ibuprofen (Motrin) 800 mg PO Q8H [facility] Last Admin: 05/18/19 10:29 Dose: 800 mg Naloxone HCl (Narcan) 0.1 mg IVPUSH SEECOMMENT PRN PRN Reason: Respiratory Depression Ondansetron HCl (Zofran) 4 mg IV Q4H PRN PRN Reason: Nausea/Vomiting Last Admin: 05/16/19 13:48 Dose: 4 mg Oxycodone/Acetaminophen (Percocet 325-5 Mg) 1 tab PO Q4H PRN PRN Reason: Pain (moderate 4-6) Last Admin: 05/17/19 21:44 Dose: 1 tab Oxycodone/Acetaminophen (Percocet 325-5 Mg) 2 tab PO Q4H PRN PRN Reason: Pain (severe 7-10) Last Admin: 05/18/19 06:55 Dose: 2 tab Prenat Multivit/Mckinley/Iron/Folic Ac ( Plus Iron) 1 each PO DAILY [facility] Last Admin: 05/18/19 10:29 Dose: 1 each Simethicone (Simethicone) 80 mg PO PCBED [facility] Last Admin: 05/18/19 10:28 Dose: 80 mg Discontinued Medications Bupivacaine HCl (Marcaine 0.5%) Confirm Administered Dose 30 ml .ROUTE .STK-MED ONE Stop: 05/16/19 07:07 Last Admin: 05/16/19 08:00 Dose: 20 ml Cefazolin Sodium (Ancef) Confirm Administered Dose 2 gm .ROUTE .STK-MED ONE Stop: 05/16/19 07:10 Citric Acid/Sodium Citrate (Bicitra Solution) 30 ml PO ONETIME ONE Stop: 05/16/19 06:01 Last Admin: 05/16/19 07:07 Dose: 30 ml Diphenhydramine HCl (Benadryl) 25 mg IVPUSH Q6H PRN PRN Reason: Pruritis Fentanyl (Sublimaze) Confirm Administered Dose 100 mcg .ROUTE .STK-MED ONE Stop: 05/16/19 07:10 Fentanyl (Sublimaze) 50 mcg IVPUSH Q5M PRN PRN Reason: Pain Cefazolin Sodium/Dextrose 2 gm (/ Premix) 50 mls @ 100 mls/hr IV ONETIME ONE Stop: 05/16/19 07:29 Lactated Ringer's (Ringers, Lactated) 1,000 mls @ 125 mls/hr IV ASDIRECTED JULIEN Last Admin: 05/16/19 06:27 Dose: 999 mls/hr Oxytocin/Lactated Ringer's (Pitocin In Lr 20 Units/1,000 Ml) 20 unit in 1,000 mls @ 500 mls/hr IV TITRATE JULIEN; Protocol Lactated Ringer's (Ringers, Lactated) Confirm Administered Dose 1,000 mls @ as directed .ROUTE .STK-MED ONE Stop: 05/16/19 08:24 Lactated Ringer's (Ringers, Lactated) Confirm Administered Dose 1,000 mls @ as directed .ROUTE .STK-MED ONE Stop: 05/16/19 08:32 Dextrose/Lactated Ringer's (Dextrose 5%-Lactated Ringers) 1,000 mls @ 125 mls/ hr IV ASDIRECTED JULIEN Stop: 05/16/19 19:39 Last Admin: 05/16/19 12:00 Dose: 125 mls/hr Ketorolac Tromethamine (Toradol) Confirm Administered Dose 30 mg .ROUTE .STK- MED ONE Stop: 05/16/19 08:23 Metoclopramide HCl (Reglan) 10 mg IVPUSH ONETIME ONE Stop: 05/16/19 06:01 Last Admin: 05/16/19 07:07 Dose: 10 mg Miscellaneous Medication (Phenylephrine 1 Mg/10 Ml-Ns) Confirm Administered Dose 1 mg IV .STK-MED ONE Stop: 05/16/19 07:51 Morphine Sulfate (Duramorph Pf) Confirm Administered Dose 10 mg .ROUTE .STK-MED ONE Stop: 05/16/19 07:10 Ondansetron HCl (Zofran) 4 mg IVPUSH ONETIME PRN PRN Reason: Nausea/Vomiting Oxytocin (Pitocin) Confirm Administered Dose 20 unit .ROUTE .STK-MED ONE Stop: 05/16/19 07:09 Oxytocin (Pitocin) Confirm Administered Dose 20 unit .ROUTE .STK-MED ONE Stop: 05/16/19 08:12 Sodium Chloride (Saline Flush) 10 ml FLUSH ASDIRECTED PRN PRN Reason: Keep Vein Open
[2019-05-18 12:51] VITALS: BP 103/61; PULSE 83
== END 2019-05-18 13:00 | disposition home or self-care (01) | DRG 787 ==
LOC: JD.OB 05:20
PROVIDERS: ADMIT Obstetrics & Gynecology; ATTEND Obstetrics & Gynecology
PROC: 10D00Z1 Extraction of Products of Conception, Low, Open Approach (ICD-10-PCS; principal; 2019-05-16)
DX: O34.211 Maternal care for low transverse scar from previous cesarean delivery (principal); D62 Acute posthemorrhagic anemia; Z3A.39 39 weeks gestation of pregnancy; Z37.0 Single live birth; O99.02 Anemia complicating childbirth
CPT/HCPCS: 01961; 36415; 59025; 85025; 86592; 86850; 86900; 86901; 94762; A9270-GY; J0690; J1885; J2270; J2370; J2405; J2590; J2765; J3010; J3490; J7030; J7120; J7121

== ENCOUNTER 2020-06-06 09:23 | Day surgery (SDC) | payer OTHER ==
[~2020-06-06 09:23] MED LIST changes: +Lactated Ringers 1,000 ML IV SCH; +Lidocaine 1%/Sod Bicarbonate in NS 8.4% 1 ML Syringe IDERM PRN; -Oxytocin/Lactated Ringers 20 UNIT/1,000 ML BAG IV SCH
[2020-06-06] MEDS ORDERED: Midazolam 1 MG/ML 2 ML SDV ONE (10:23)
[2020-06-06] MEDS ORDERED: Propofol 200 MG/20 ML SDV ONE (10:23)
[2020-06-06] MEDS ORDERED: fentaNYL 100 MCG/2 ML SDV ONE (10:23)
[2020-06-06] MEDS ORDERED: Lidocaine 1% 6 ML ONE (10:25)
--- NOTE | 2020-06-06 10:31 | PCM.PREANE ---
Preanesthetic Assessment - Procedure Proposed Procedure: D & C - Anesthesia/Transfusion/Family Hx Anesthesia History: Prior Anesthesia Without Reaction Transfusion History: No Prior Transfusion(s) Intubation History: Unknown - Review of Systems General: No Symptoms Pulmonary: No Symptoms Cardiovascular: No Symptoms Gastrointestinal: No Symptoms Neurological: No Symptoms Other: Reports: None - Physical Assessment NPO Status Date: 06/05/20 NPO Status Time: 23:00 Vital Signs: Last Vital Signs Temp 98.1 F 06/06/20 09:40 Pulse 95 06/06/20 09:40 Resp 16 06/06/20 09:40 BP 117/70 06/06/20 09:40 Pulse Ox 98 06/06/20 09:40 Height: 1.57 m Weight: 74 kg ASA Class: 1 Mental Status: Alert & Oriented x3 Airway Class: Mallampati = 1 Dentition: Reports: Normal Dentition, Sabina(s) Thyro-Mental Finger Breadths: 3 Mouth Opening Finger Breadths: 3 ROM/Head Extension: Full Lungs: Clear to Auscultation, Normal Respiratory Effort Cardiovascular: Regular Rate, Regular Rhythm - Lab Values: Laboratory Last Values Urine HCG, Qual Negative (NEGATIVE) 06/06/20 09:25 SARS-CoV-2 RNA ([facility]) Negative (NEGATIVE) 06/06/20 09:15 - Allergies Allergies/Adverse Reactions: Allergies Allergy/AdvReac Type Severity Reaction Status Date / Time No Known Allergies Allergy Verified 05/16/19 07:17 - Acknowledgements Anesthesia Type Planned: General Anesthesia, MAC Pt an Appropriate Candidate for the Planned Anesthesia: Yes Alternatives and Risks of Anesthesia Discussed w Pt/Guardian: Yes Pt/Guardian Understands and Agrees with Anesthesia Plan: Yes 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 Questionnaire HEENT History: Reports: None 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 Currently taking iron daily - Past Surgical History Other HEENT Surgeries/Procedures: wisdom teeth - HOME MEDS Home Medications: Home Meds Ferrous Sulfate [Iron] 325 mg PO DAILY 05/16/19 [History] Pnv No.95/Ferrous Fum/Folic AC [Prenavite Tablet] 1 each PO DAILY 05/16/19 [History] Acetaminophen/oxyCODONE [Percocet 325-5 MG] 2 tab PO Q4H PRN tablet 05/18/19 [Rx] Docusate Sodium [Colace] 100 mg PO Q12H PRN cap 05/18/19 [Rx] Ferrous Sulfate 324 mg PO BIDMEALS tab.ec 05/18/19 [Rx] Ibuprofen 600 mg PO Q4HR PRN #30 tablet 05/18/19 [Rx] Vit with Ca/FA/Iron [ Plus Iron] 1 each PO DAILY tablet 05/18/19 [Rx] - CURRENT (IN HOUSE) MEDS Current Meds: Current Medications Lactated Ringer's (Ringers, Lactated) 1,000 mls @ 125 mls/hr IV ASDIRECTED JULIEN Stop: 06/06/20 23:00 Lidocaine/Sodium Bicarbonate (Lidocaine 1%/Sod Bicarbonate In Ns 8.4% 1 Ml Syringe) 0.25 ml IDERM ONETIME PRN PRN Reason: Prior to IV Start Stop: 06/06/20 18:00 Sodium Chloride (Sodium Chloride 0.9% 10 Ml Syringe) 10 ml FLUSH ASDIRECTED PRN PRN Reason: Keep Vein Open Stop: 06/06/20 18:00 Discontinued Medications Fentanyl (Fentanyl 100 Mcg/2 Ml Sdv) Confirm Administered Dose 100 mcg .ROUTE .STK-MED ONE Stop: 06/06/20 10:24 Lidocaine HCl (Xylocaine-Mpf 1%) Confirm Administered Dose 6 mls @ as directed .ROUTE .STK-MED ONE Stop: 06/06/20 10:26 Midazolam HCl (Midazolam 1 Mg/Ml 2 Ml Sdv) Confirm Administered Dose 4 mg .ROUTE .STK-MED ONE Stop: 06/06/20 10:24 Propofol (Propofol 200 Mg/20 Ml Sdv) Confirm Administered Dose 400 mg .ROUTE .STK-MED ONE Stop: 06/06/20 10:24
[2020-06-06] MEDS ORDERED: ceFAZolin 1 GM Vial ONE (10:46)
[2020-06-06] MEDS ORDERED: Ondansetron 4 MG/2 ML SDV ONE (10:48)
[2020-06-06] MEDS ORDERED: Ketorolac 30 MG/ML SDV ONE (10:59)
[2020-06-06] MEDS ORDERED: Ondansetron 4 MG/2 ML SDV IVPUSH PRN (11:04)
--- NOTE | 2020-06-06 11:12 | PCM.OPNOTE ---
- General Post-Op/Procedure Note Date of Surgery/Procedure: 06/06/20 Operative Procedure(s): Dilation and curettage Findings: Thickened endometrium with some moderate amount of endometrial tissue removed at the time of D&C. Uterus was enlarged to approximately 8 weeks size. It was retroflexed. Adnexa palpatedno masses organomegaly otherwise noted. Pre Op Diagnosis: 1. Abnormal uterine bleeding with metromenorrhagia. 2. Thickened endometrium Post-Op Diagnosis: Same Anesthesia Technique: MAC Primary Surgeon: Emir Villanueva Secondary Surgeon: Bernard Allen Anesthesia Provider: Rambo Kebede Pathology: Endometrial curettings Fluid Replacement, Intraop: 900 EBL in mLs: 20 Complications: None Condition: Good Free Text/Narrative:: Surgery duration: 9 minutes The patient was taken to the operating room and placed in a supine position operating table. She received 2 g of Ancef preoperatively for infection prophylaxis. After adequate general MAC anesthesia patient was placed in a dorsal lithotomy position. A weighted speculum was placed in the vagina. Cervix is found to be dilated to approximately 1 centimeters. Uterus was sounded to approximately 9 cm. It was found to be posterior and flexed. An large sharp curette was then introduced in routine fashion the endometrial cavity was added. Moderate amount tissue was obtained. Endometrial polyp forceps was then introduced and a small amount of tissue was removed. At this point the procedure was discontinued. The single-tooth tenaculum which had been applied to the posterior cervical lip was removed. Patient was awakened from her MAC anesthesia and was discharged from the operating room in good condition.
[2020-06-06] MEDS ORDERED: Ketorolac 30 MG/ML SDV IVPUSH SCH (11:15)
[2020-06-06] MEDS ORDERED: fentaNYL 100 MCG/2 ML SDV IVPUSH ONE (12:30)
[2020-06-06 13:17] VITALS: BP 92/69; PULSE 71
[2020-06-06] MEDS ORDERED: Ibuprofen 600 MG Tab PO PRN (14:00)
== END 2020-06-06 13:24 | disposition home or self-care (01) ==
LOC: JD.SDS 09:23
PROVIDERS: ATTEND Obstetrics & Gynecology
DX: N84.0 Polyp of corpus uteri (principal); N93.9 Abnormal uterine and vaginal bleeding, unspecified; Z01.812 Encounter for preprocedural laboratory examination; Z20.822 Contact with and (suspected) exposure to COVID-19
CPT/HCPCS: 58999; 81025; 87635; J0690; J1885; J2250; J2405; J2704; J3010; J7120; 00940; U0002

== ENCOUNTER 2021-01-27 07:02 | Day surgery (SDC) | payer OTHER ==
[~2021-01-27 07:02] MED LIST changes: -Lactated Ringers 1,000 ML IV SCH
[2021-01-27] MEDS ORDERED: Propofol 200 MG/20 ML SDV ONE (07:11)
[2021-01-27] MEDS ORDERED: fentaNYL 250 MCG/5 ML SDV ONE (07:11)
[2021-01-27] MEDS ORDERED: Ondansetron 4 MG/2 ML SDV ONE (07:11)
[2021-01-27] MEDS ORDERED: Rocuronium 50 MG/5 ML Vial ONE (07:11)
[2021-01-27] MEDS ORDERED: Midazolam 1 MG/ML 2 ML SDV ONE (07:11)
[2021-01-27] MEDS ORDERED: Lidocaine 1% 4 ML ONE (07:11)
[2021-01-27] MEDS ORDERED: ceFAZolin 1 GM Vial ONE (07:18)
[2021-01-27] MEDS: Lactated Ringers 1,000 ML IV SCH ×3 (07:27→12:50)
[2021-01-27] MEDS ORDERED: Lidocaine 1% 30 ML SDV ONE (07:41)
--- NOTE | 2021-01-27 07:47 | PCM.PREANE ---
Preanesthetic Assessment - Procedure Proposed Procedure: total vaginal hysterectomy with bs - Anesthesia/Transfusion/Family Hx Anesthesia History: Prior Anesthesia Without Reaction Family History of Anesthesia Reaction: No Transfusion History: Prior Transfusion Without Reaction Intubation History: Unknown - Review of Systems General: No Symptoms Pulmonary: No Symptoms, Other (recent covid- released from the state 01/21) Cardiovascular: No Symptoms Gastrointestinal: No Symptoms Neurological: No Symptoms Other: Reports: None - Physical Assessment NPO Status Date: 01/26/21 NPO Status Time: 23:00 Vital Signs: 112/76 88 97% 97.7 Height: 5 ft 2 in Weight: 71.8 kg ASA Class: 2 Mental Status: Alert & Oriented x3 Airway Class: Mallampati = 1 Dentition: Reports: Normal Dentition Thyro-Mental Finger Breadths: 3 Mouth Opening Finger Breadths: 3 ROM/Head Extension: Full Lungs: Clear to Auscultation, Normal Respiratory Effort Cardiovascular: Regular Rate, Regular Rhythm - Allergies Allergies/Adverse Reactions: Allergies Allergy/AdvReac Type Severity Reaction Status Date / Time No Known Allergies Allergy Verified 01/26/21 12:51 - Blood Blood Available: No - Acknowledgements Anesthesia Type Planned: General Anesthesia Pt an Appropriate Candidate for the Planned Anesthesia: Yes Alternatives and Risks of Anesthesia Discussed w Pt/Guardian: Yes Pt/Guardian Understands and Agrees with Anesthesia Plan: Yes 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 Questionnaire HEENT History: Reports: Impaired Vision, Other (See Below) Other HEENT History: wears glasses Cardiovascular History: Reports: None Respiratory History: Reports: None Gastrointestinal History: Reports: None Genitourinary History: Reports: Other (See Below) Other Genitourinary History: x 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 Currently taking iron daily Immunologic History: Reports: None Oncologic (Cancer) History: Reports: None Dermatologic History: Reports: None - Infectious Disease History Infectious Disease History: Reports: Novel Coronavirus - Past Surgical History Head Surgeries/Procedures: Reports: None HEENT Surgical History: Reports: Oral Surgery Other HEENT Surgeries/Procedures: wisdom teeth Cardiovascular Surgical History: Reports: None Respiratory Surgical History: Reports: None GI Surgical History: Reports: None Female Surgical History: Reports: Section, D&C Male Surgical History: Reports: None Endocrine Surgical History: Reports: None Neurological Surgical History: Reports: None Musculoskeletal Surgical History: Reports: None Oncologic Surgical History: Reports: None Dermatological Surgical History: Reports: None - SUBSTANCE USE Tobacco Use Status *Q: Never Tobacco User Tobacco Use Within Last Twelve Months: No Second Hand Smoke Exposure: No Days Per Week of Alcohol Use: 0 Recreational Drug Use History: No - HOME MEDS Home Medications: Home Meds Vit with Ca/FA/Iron [ Plus Iron] 1 each PO DAILY tablet 05/18/19 [Rx] Docusate Sodium [Colace] 100 mg PO ASDIRECTED PRN 01/26/21 [History] Ferrous Sulfate [Iron] 325 mg PO DAILY 01/26/21 [History] Ibuprofen [Motrin] 600 mg PO Q6H PRN 01/26/21 [History] - CURRENT (IN HOUSE) MEDS Current Meds: Current Medications Lactated Ringer's (Ringers, Lactated) 1,000 mls @ 125 mls/hr IV ASDIRECTED JULIEN Stop: 01/27/21 23:00 Lidocaine/Sodium Bicarbonate (Lidocaine 1%/Sod Bicarbonate In Ns 8.4% 1 Ml Syringe) 0.25 ml IDERM ONETIME PRN PRN Reason: Prior to IV Start Stop: 01/27/21 23:00 Sodium Chloride (Sodium Chloride 0.9% 10 Ml Syringe) 10 ml FLUSH ASDIRECTED PRN PRN Reason: Keep Vein Open Stop: 01/27/21 23:00 Discontinued Medications Albuterol/Ipratropium (Albuterol/Ipratropium 3.0-0.5 Mg/3 Ml Neb Soln) 3 ml NEB ONETIME ONE Stop: 01/27/21 08:01 Cefazolin Sodium (Cefazolin 1 Gm Vial) Confirm Administered Dose 2 gm .ROUTE .STK-MED ONE Stop: 01/27/21 07:19 Fentanyl (Fentanyl 250 Mcg/5 Ml Sdv) Confirm Administered Dose 250 mcg .ROUTE .STK-MED ONE Stop: 01/27/21 07:12 Lidocaine HCl (Xylocaine-Mpf 1%) Confirm Administered Dose 4 mls @ as directed .ROUTE .STK-MED ONE Stop: 01/27/21 07:12 Lidocaine HCl (Lidocaine 1% 30 Ml Sdv) Confirm Administered Dose 30 ml .ROUTE .STK-MED ONE Stop: 01/27/21 07:42 Midazolam HCl (Midazolam 1 Mg/Ml 2 Ml Sdv) Confirm Administered Dose 2 mg .ROUTE .STK-MED ONE Stop: 01/27/21 07:12 Ondansetron HCl (Ondansetron 4 Mg/2 Ml Sdv) Confirm Administered Dose 4 mg .ROUTE .STK-MED ONE Stop: 01/27/21 07:12 Propofol (Propofol 200 Mg/20 Ml Sdv) Confirm Administered Dose 200 mg .ROUTE .STK-MED ONE Stop: 01/27/21 07:12 Rocuronium [place] (Rocuronium 50 Mg/5 Ml Vial) Confirm Administered Dose 50 mg .ROUTE .STK-MED ONE Stop: 01/27/21 07:12
[2021-01-27] MEDS ORDERED: Albuterol/Ipratropium 3.0-0.5 MG/3 ML Neb Soln NEB ONE (08:00)
[2021-01-27] MEDS ORDERED: Ketamine 500 mg/10 ML MDV ONE (08:23)
[2021-01-27] MEDS ORDERED: Ondansetron 4 MG/2 ML SDV IVPUSH PRN ×2 (08:31→09:09)
[2021-01-27] MEDS ORDERED: Dexamethasone 4 MG/ML 5 ML MDV ONE (08:32)
[2021-01-27] MEDS ORDERED: Lactated Ringers 1,000 ML ONE (08:53)
[2021-01-27] MEDS ORDERED: Ketorolac 30 MG/ML SDV ONE (09:09)
[2021-01-27] MEDS ORDERED: Acetaminophen/oxyCODONE 325-5 MG Tab PO PRN ×2 (09:09→15:32)
--- NOTE | 2021-01-27 09:15 | PCM.OPNOTE ---
- General Post-Op/Procedure Note Date of Surgery/Procedure: 01/27/21 Operative Procedure(s): Total vaginal hysterectomy with bilateral salpingectomy Findings: Uterus is posterior position. Fallopian tubes and ovaries appear to be within normal limits. Uterus was mildly enlarged. Vaginal vault was multiparous in appearance with adequate relaxation of the uterus and canal. Pre Op Diagnosis: 1. Menorrhagia. 2. Dysmenorrhea. 3. Chronic blood loss anemia Post-Op Diagnosis: Same Anesthesia Technique: General ET Tube Other Anesthesia Type: Lidocaine quarter percent with [id number] mL totallocal Primary Surgeon: Emir Villanueva Secondary Surgeon: Elian Hassan Anesthesia Provider: Awa Salazar Reason Brand Representative Was Necessary: Retraction, assistance, patient safety, quality of care. Pathology: Uterus, bilateral fallopian tubes in one specimen container. Fluid Replacement, Intraop: 1,000 EBL in mLs: 200 Complications: None Condition: Good Free Text/Narrative:: Surgery duration: 32 minutes Procedure: The patient was placed in supine position on the operating table. General endotracheal anesthesia was accomplished. After positioning, and adequate prep and drape, the procedure was then performed. Sterile speculum was placed in the vagina and cervix was visualized. Cervix was injected with lidocaine quarter percent with epinephrine-20 mL used. A full circumference incision was made in the cervical epithelium. The bladder was pushed well back off cervix. Prior to anterior cul-de-sac entrance uterus was inverted and direction for entry into the anterior cul-de-sac was made with a digit around the top of the uterus. No problems were encountered. Posterior cul-de-sac was then entered sharply without problems. Left uterosacral was crossclamped with a Enseal vessel closure system. The left uterosacral and then the right uterosacral ligament pedicles were developed using the Enseal system. The anterior cul-de-sac was then entered without problems and the uterine vasculature, cardinal ligament and broad ligament then developed using Enseal vessel closure system. The uterus was inverted at this time and upper broad ligament fallopian tube pedicles were crossclamped with Sathish clamps. Specimen was totally removed. Both these pedicles were then secured with a Sathish stitch of 0 Monocryl. Left and right fallopian tube was normal in appearance.. Using Enseal vessel closure system each of the tubes was then removed and sent with the specimen. The patient was found to be hemostatically intact at this time. Vaginal cuff was sutured for hemostatic reasons with a running locked suture of 0 Monocryl from the 2 o'clock position to the 10 o'clock position posteriorly. Vaginal cuff was then closed from right to left side with a running locked suture of 0 Monocryl. Patient was returned to supine position and awakened from general endotracheal anesthesia. She tolerated the procedure and left the operating room in satisfactory condition.
--- NOTE | 2021-01-27 09:32 | PCM.POSTAN ---
POST ANESTHESIA ASSESSMENT - MENTAL STATUS Mental Status: Somnolent - VITAL SIGNS Vital Signs: Last Vital Signs Temp 97.7 F 01/27/21 07:15 Pulse 88 01/27/21 07:15 Resp 16 01/27/21 07:15 BP 112/76 01/27/21 07:15 Pulse Ox 97 01/27/21 07:15 0923 107/64 72 15 97.5 95% - RESPIRATORY Respiratory Status: Respiratory Rate WNL, Airway Patent, O2 Saturation Stable, Supplemental Oxygen - CARDIOVASCULAR CV Status: Pulse Rate WNL, Blood Pressure Stable - GASTROINTESTINAL GI Status: No Symptoms - PAIN Pain Score: 0 - POST OP HYDRATION Hydration Status: Adequate & Stable
[2021-01-27] MEDS ORDERED: Acetaminophen/oxyCODONE 325-5 MG Tab PO ONE (11:00)
[2021-01-27] MEDS: HYDROmorphone 0.5 MG/0.5 ML Syringe IVPUSH PRN ×2 (12:43→13:12)
--- NOTE | 2021-01-27 12:43 | PCM48HPAN ---
Post Anesthesia Note - EVALUATION WITHIN 48HRS OF ANESTHETIC Vital Signs in Normal Range: Yes Patient Participated in Evaluation: Yes Respiratory Function Stable: Yes Airway Patent: Yes Cardiovascular Function Stable: Yes Hydration Status Stable: Yes Pain Control Satisfactory: No (giving dilaudid- slept prior) Nausea and Vomiting Control Satisfactory: Yes Mental Status Recovered: Yes Vital Signs: Last Vital Signs Temp 98.2 F 01/27/21 10:30 Pulse 57 L 01/27/21 10:30 Resp 12 01/27/21 10:30 BP 124/83 01/27/21 10:30 Pulse Ox 99 01/27/21 10:30 - COMMENTS/OBSERVATIONS Free Text/Narrative:: feels pain wrap around her low abd to back area
[2021-01-27] MEDS: fentaNYL 100 MCG/2 ML SDV IVPUSH PRN ×2 (12:50→13:15)
[2021-01-27 14:22] VITALS: BP 98/51; PULSE 81
[2021-01-27] MEDS ORDERED: Ketorolac 30 MG/ML SDV IVPUSH SCH (15:00)
[2021-01-27] MEDS ORDERED: Ibuprofen 600 MG Tab PO PRN (21:00)
== END 2021-01-27 16:09 | disposition home or self-care (01) ==
LOC: JD.SDS 07:02
PROVIDERS: ATTEND Obstetrics & Gynecology
DX: N72 Inflammatory disease of cervix uteri (principal); N80.0 Endometriosis of uterus; D50.0 Iron deficiency anemia secondary to blood loss (chronic); Z79.899 Other long term (current) drug therapy
CPT/HCPCS: 00944; 36415; 85025; A9270-GY; J0690; J1100; J1170; J1885; J2250; J2405; J2704; J2710; J3010; J7120; J7620-GY

== ENCOUNTER 2024-09-19 10:40 | Emergency (ER) | payer OTHER ==
[2024-09-19 11:20] LABS: BASOPHILS ABSOLUTE AUTO 0.0 K/mm3 (0.0-0.2); BASOPHILS PERCENT AUTO 0.8 % (0.0-1.0); EOSINOPHILS ABSOLUTE AUTO 0.1 K/mm3 (0.0-0.4); EOSINOPHILS PERCENT AUTO 2.1 % (0.0-6.0); IMMATURE GRAN ABSOLUTE AUTO 0.01 K/mm3 (0.00-0.05); IMMATURE GRAN PERCENT AUTO 0.2 % (0.0-0.4); LYMPHOCYTES ABSOLUTE AUTO 2.5 K/mm3 (1.0-4.8); LYMPHOCYTES PERCENT AUTO 47.5 % (24.0-44.0); MEAN PLATELET VOLUME 9.7 fl (9.4-12.3); MONOCYTES ABSOLUTE AUTO 0.5 K/mm3 (0.0-0.8); MONOCYTES PERCENT AUTO 8.6 % (0.0-8.0); NEUTROPHILS ABSOLUTE AUTO 2.2 K/mm3 (1.8-7.7); NEUTROPHILS PERCENT AUTO 40.8 % (41.0-71.0); NRBC ABSOLUTE 0.00 (0.00-0.02); NRBC PERCENT 0.0 % (0.0-0.2); PLATELET COUNT,PLT 222 K/mm3 (150-400); RED BLOOD CELL COUNT 4.88 M/mm3 (4.10-5.30); WHITE BLOOD CELL COUNT,WBC 5.33 K/mm3 (3.9-11.3)
[2024-09-19] MEDS: Sodium Chloride 0.9% 10 ML Syringe FLUSH PRN (11:25)
[2024-09-19] MEDS: diphenhydrAMINE 50 MG/ML SDV IVPUSH ONE (11:25)
[2024-09-19] MEDS: methylPREDNISolone Sodium Succinate 125 MG/2 ML SDV IVPUSH ONE (11:25)
[2024-09-19 11:51] LABS: A/G RATIO 1.2 (1-2); ALANINE AMINOTRANSFERASE,ALT 58.0 U/L (14-59); ASPARTATE AMNIOTRANSFERASE,AST 27.0 U/L (15-37); BILIRUBIN TOTAL 0.3 mg/dL (0.2-1.0); BLOOD UREA NITROGEN,BUN 10.0 mg/dL (7-18); CARBON DIOXIDE,CO2 27.0 mEq/L (21-32); CHLORIDE,CL 105.0 mEq/L (98-107); CREATININE 0.8 mg/dL (0.55-1.02); EST CRCL DRUG DOSING (CG) 95.45 mL/min; ESTIMATED GFR 98.0 mL/min (>60); GLUCOSE RANDOM 115.0 mg/dL (70-99); POTASSIUM,K 3.9 mEq/L (3.5-5.1); PROTEIN TOTAL,TP 6.8 g/dl (6.4-8.2); SODIUM,NA 140.0 mEq/L (136-145); TSH 4.282 uIU/mL (0.358-3.74)
[2024-09-19 12:13] LABS: T4 FREE 0.87 ng/dL (0.76-1.46)
[2024-09-19 13:24] VITALS: BP 120/90; PULSE 83
== END 2024-09-19 13:00 | disposition home or self-care (01) ==
LOC: JD.ED 10:40
DX: L50.9 Urticaria, unspecified (principal); Z79.899 Other long term (current) drug therapy; Z86.16 Personal history of COVID-19
CPT/HCPCS: 36415; 80053; 84439; 84443; 85025; 86140; 96374; 96375; 99283; J1200; J1308; J2919; 99284